=== PATIENT | male | born 1945 | race Caucasian/White ===

== ENCOUNTER 2016-08-09 16:06 | Emergency (ER) | payer OTHER ==
[~2016-08-09] VITALS: Wt 80.0 kg
[2016-08-09] MEDS ORDERED: LIDOCAINE 2%/EPI MPF (SDV) 20 ML VIAL INJ STA (16:34)
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
[2016-08-09] MEDS ORDERED: DIPHTH/TET/ACEL PERTUSS (ADULT) 0.5 ML VIAL IM ONE (17:00)
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
[2016-08-09 17:58] VITALS: BP 154/85; PULSE 78; RESP 18; TEMP 98.6
== END 2016-08-09 18:11 | disposition home or self-care (01) ==
LOC: FTE 16:06
DX: S01.111A Laceration without foreign body of right eyelid and periocular area, initial encounter (principal); S09.90XA Unspecified injury of head, initial encounter; Y08.89XA Assault by other specified means, initial encounter; Z23 Encounter for immunization
CPT/HCPCS: 12014; 70450; 90715; Z7610; 90471

== ENCOUNTER 2016-08-11 07:22 | Emergency (ER) | payer OTHER ==
[~2016-08-11] VITALS: Ht 157.5 cm; Wt 80.5 kg
[2016-08-11 07:24] VITALS: Ht 157.5 cm; Wt 80.5 kg
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
== END 2016-08-11 07:51 | disposition home or self-care (01) ==
LOC: FTE 07:22
DX: Z48.01 Encounter for change or removal of surgical wound dressing (principal)
CPT/HCPCS: 99281